=== PATIENT | female | born 1975 ===

== ENCOUNTER 2019-12-11 08:14 | Emergency (ER) | payer OTHER ==
[~2019-12-11] VITALS: Ht 165.1 cm; Wt 68.9 kg
[2019-12-11] MEDS ORDERED: BUSPAR (08:30)
[2019-12-11] MEDS ORDERED: INTESTINEX680 M1 PO (14:36)
[2019-12-11] MEDS ORDERED: PEPCID20 MG PO (14:36)
[2019-12-11] MEDS ORDERED: AMOX1TAB5 PO (14:36)
== END 2019-12-11 16:41 | disposition home or self-care (01) ==
LOC: ER 08:14
DX: K57.32 Diverticulitis of large intestine without perforation or abscess without bleeding (principal); R10.32 Left lower quadrant pain; Z03.818 Encounter for observation for suspected exposure to other biological agents ruled out

== ENCOUNTER 2020-06-01 19:36 | Emergency (ER) | payer OTHER ==
[~2020-06-01] VITALS: Ht 167.6 cm; Wt 68.0 kg
[~2020-06-01 19:36] MED LIST: AMOX1TAB5 PO; BUSPAR; INTESTINEX680 M1 PO; PEPCID20 MG PO
== END 2020-06-02 12:34 | disposition home or self-care (01) ==
LOC: ER 19:36
DX: K57.92 Diverticulitis of intestine, part unspecified, without perforation or abscess without bleeding (principal); R10.32 Left lower quadrant pain; K59.09 Other constipation

== ENCOUNTER 2020-09-18 14:53 | Emergency (ER) | payer OTHER ==
[~2020-09-18] VITALS: Ht 165.1 cm; Wt 59.0 kg
== END 2020-09-18 16:58 | disposition home or self-care (01) ==
LOC: ER 14:53
DX: K62.5 Hemorrhage of anus and rectum (principal)

== ENCOUNTER 2021-02-15 11:27 | Emergency (ER) | payer OTHER ==
[~2021-02-15] VITALS: Ht 167.6 cm; Wt 62.6 kg
[2021-02-15] MEDS ORDERED: PROTONIX20 MG PO (19:02)
[2021-02-15] MEDS ORDERED: CARAFATE1 GM PO (19:02)
[2021-02-15] MEDS ORDERED: DICY20TA PO (19:02)
[2021-02-15] MEDS ORDERED: PEPCID AC20 MG PO (19:02)
== END 2021-02-15 20:19 | disposition home or self-care (01) ==
LOC: ER 11:27
DX: K29.00 Acute gastritis without bleeding (principal)